=== PATIENT | male | born 1950 | race Caucasian/White ===

== ENCOUNTER 2021-03-23 09:58 | Day surgery (SDC) | payer MEDICARE, OTHER ==
[~2021-03-23] VITALS: Ht 182.9 cm; Wt 111.1 kg
--- NOTE | ~2021-03-23 | OP ---
PATIENT NAME: RAFAL LEAL MEDICAL RECORD: [id number] :48 LOCATION:[facility] ADMISSION DATE: SURGEON: BRENNON GOODEN DATE OF OPERATION: 03/23/2021 SURGEON: Brennon Gooden DPM PREOPERATIVE DIAGNOSIS: Tailor's bunion, left foot. POSTOPERATIVE DIAGNOSIS: Tailor's bunion, left foot. PROCEDURE: Tailor's bunionectomy, left foot. ANESTHESIA: Local with monitored anesthesia care. HEMOSTASIS: Pneumatic ankle tourniquet inflated to 250 mmHg. ESTIMATED BLOOD LOSS: Minimal. MATERIALS: 4-0 Vicryl, 4-0 Prolene. INJECTABLES: 10 cc of 0.5% bupivacaine plain preoperatively. The patient has a longstanding history of pain associated with the lateral aspect of the left foot. This is associated with a tailor's bunion. He is here today for repair of that deformity. We have discussed the risks and benefits of the procedure. Complications were reviewed. All questions were answered. He was appropriately consented for the above-mentioned procedure. DESCRIPTION OF PROCEDURE: The patient was brought into the operating room, placed on the operating table in a supine position. A timeout was called by Dr. Gooden, who identify the patient, the surgery site, and the surgery to be performed. Once appropriate anesthesia was obtained, the foot was prepped and draped in the usual aseptic manner. The pneumatic ankle tourniquet was inflated to 250 mmHg around the well-padded left ankle. Attention was directed to the fifth metatarsophalangeal joint area where a 4-cm linear incision was made. This incision was carried deep through soft tissue with care being taken to retract all vital neurovascular structures. All bleeders were cauterized along the way. The periosteum was then reflected from the fifth metatarsophalangeal joint, thus exposing the hypertrophied lateral eminence of the fifth metatarsal head. Utilizing a sagittal saw, all hypertrophied bone was resected. All sharp edges were smoothed with the rasp. The surgical site was then irrigated with copious amounts of normal sterile saline via bulb syringe. The surgical site was then investigated for any remaining bony prominences and none were noted. The periosteum was reapproximated and coapted utilizing a 4-0 Vicryl. The subQ was reapproximated and coapted using 4-0 Vicryl. The skin was reapproximated and coapted using 4-0 Prolene. A dressing consisting of Adaptic, 4 x4, Kerlix, and an Pepito bandage was applied to the left foot. The pneumatic ankle tourniquet was deflated and capillary refill time was immediate to all digits of the left foot. OPERATIVE REPORT [id number] RAFAL LEAL The patient tolerated the procedure and anesthesia well. He left the operating room with vital signs stable and capillary refill time intact. The patient was discharged home with instructions to ice and elevate the left foot and he was dispensed a postop shoe to further help offload the area. He was provided with my cell phone number for any after hour difficulty. He was provided with prescriptions for [place] 5/325, Phenergan 25 mg, ibuprofen 800 mg and doxycycline 25 mg. There were no complications with the procedure and we will follow up with this gentleman on Friday03/26/2021. 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
[2021-03-23 10:21] LABS: BASOPHILS 1.2 % (0-2); HEMATOCRIT 38.6 % (42.0-54.0); HEMOGLOBIN 13.1 g/dL (13.5-17.5); LYMPHOCYTES 19.4 % (15-50); MCH 34.1 pg (26.0-34.0); MCV 100.4 fL (80.0-100.0); MEAN PLATELET VOLUME 8.3 fL (7.4-10.4); MONOCYTES 15.1 % (2-11); NEUTROPHILS 59.3 % (40-80); PLATELET COUNT 229 10x3/uL (130-400); RBC 3.84 10x6/uL (4.20-6.10); RDW 14.8 % (11.5-14.5); WBC 3.5 10x3/uL (4.8-10.8)
[2021-03-23 10:28] LABS: CALC OSMOLALITY 269 mosm/kg (275-300); CALCIUM 9.3 mg/dL (8.5-10.1); CARBON DIOXIDE 31.5 mmol/L (21.0-32.0); CHLORIDE - SERUM 99 mmol/L (98-107); CREATININE - SERUM 0.8 mg/dL (0.6-1.3); GLUCOSE 118 mg/dL (74-106); POTASSIUM - SERUM 4.2 mmol/L (3.5-5.1); SODIUM 134 mmol/L (136-145); UREA NITROGEN 16 mg/dL (7-18); eGFR NON AFRICAN AMERICAN > 90 mL/min (90-120)
[2021-03-23] MEDS ORDERED: IMURAN50 MG PO (11:18)
[2021-03-23] MEDS ORDERED: CYMBALTA30 MG PO (11:19)
[2021-03-23] MEDS ORDERED: LIPITOR40 MG PO (11:19)
[2021-03-23] MEDS ORDERED: NEURONTIN600 MG PO (11:20)
[2021-03-23] MEDS ORDERED: SYNTHROID75 MCG PO (11:21)
[2021-03-23] MEDS ORDERED: TOPROL XL100 MG PO (11:22)
[2021-03-23] MEDS ORDERED: TRIAMTERENE-HC1 EAC3 PO (11:22)
[2021-03-23 11:58] VITALS: BP 115/74; Ht 182.9 cm; Wt 111.1 kg
--- NOTE | 2021-03-23 16:04 | NUR ---
IV D/C'D WITH CANNULA INTACT, PRESSURE HELD AND DRSG PLACED. DISCHARGE INSTRUCTIONS GIVEN AND PT AND VERBALIZED AN UNDERSTANDING. PT INSTRUCTED ON LIMITED USE OF OPERATIVE FOOT UNTIL DR. LUNALING OKAYS MORE ACTIVITY. DISCHARGED HOME IN STABLE CONDITION AND WITHOUT C/0
== END 2021-03-23 15:55 | disposition home or self-care (01) ==
LOC: D.OPS 09:58
PROVIDERS: Anesthesiology; ATTEND Podiatrist
DX: M21.622 Bunionette of left foot (principal); M20.62 Acquired deformities of toe(s), unspecified, left foot